=== PATIENT | female | born 1940 | race Caucasian/White ===

== ENCOUNTER 2016-08-29 13:44 | Outpatient (CLI) | payer MEDICARE, OTHER ==
[2012-08-19 03:56] VITALS: BP 88/47
== END 2016-08-29 13:45 ==
LOC: LAB 13:44
PROVIDERS: ATTEND Internal Medicine Cardiovascular Disease
DX: Z51.81 Encounter for therapeutic drug level monitoring (principal); Z79.01 Long term (current) use of anticoagulants; I48.91 Unspecified atrial fibrillation
CPT/HCPCS: 36415; 85610

== ENCOUNTER 2016-11-06 11:52 | Outpatient (CLI) | payer MEDICARE, OTHER ==
[2012-08-19 03:56] VITALS: BP 88/47
== END 2016-11-06 11:53 ==
LOC: LAB 11:52
PROVIDERS: ATTEND Internal Medicine Cardiovascular Disease
DX: Z51.81 Encounter for therapeutic drug level monitoring (principal); Z79.01 Long term (current) use of anticoagulants; I48.91 Unspecified atrial fibrillation
CPT/HCPCS: 36415; 85610

== ENCOUNTER 2016-11-20 15:17 | Outpatient (CLI) | payer MEDICARE, OTHER ==
[2012-08-19 03:56] VITALS: BP 88/47
== END 2016-11-20 15:20 ==
LOC: LAB 15:17
PROVIDERS: ATTEND Internal Medicine Cardiovascular Disease
DX: Z51.81 Encounter for therapeutic drug level monitoring (principal); Z79.01 Long term (current) use of anticoagulants; I48.91 Unspecified atrial fibrillation
CPT/HCPCS: 36415; 85610

== ENCOUNTER 2016-12-31 12:09 | Outpatient (CLI) | payer MEDICARE, OTHER ==
[2012-08-19 03:56] VITALS: BP 88/47
== END 2016-12-31 12:10 ==
LOC: LAB 12:09
PROVIDERS: ATTEND Internal Medicine Cardiovascular Disease
DX: I48.91 Unspecified atrial fibrillation (principal); Z79.01 Long term (current) use of anticoagulants
CPT/HCPCS: 36415; 85610

== ENCOUNTER 2017-01-28 13:45 | Outpatient (CLI) | payer MEDICARE, OTHER ==
[2012-08-19 03:56] VITALS: BP 88/47
== END 2017-01-28 13:46 ==
LOC: LAB 13:45
PROVIDERS: ATTEND Internal Medicine Cardiovascular Disease
DX: Z79.01 Long term (current) use of anticoagulants (principal)
CPT/HCPCS: 36415; 85610

== ENCOUNTER 2017-02-04 14:26 | Outpatient (CLI) | payer MEDICARE, OTHER ==
[2012-08-19 03:56] VITALS: BP 88/47
== END 2017-02-04 14:27 ==
LOC: LAB 14:26
PROVIDERS: ATTEND Internal Medicine Cardiovascular Disease
DX: R30.0 Dysuria (principal)
CPT/HCPCS: 36415; 85610; 87086

== ENCOUNTER 2017-02-12 08:20 | Outpatient (CLI) | payer MEDICARE, OTHER ==
[2012-08-19 03:56] VITALS: BP 88/47
== END 2017-02-12 08:21 ==
LOC: LAB 08:20
PROVIDERS: ATTEND Internal Medicine Cardiovascular Disease
DX: Z79.01 Long term (current) use of anticoagulants (principal)
CPT/HCPCS: 36415; 85610

== ENCOUNTER 2017-02-23 13:29 | Outpatient (CLI) | payer MEDICARE, OTHER ==
[2012-08-19 03:56] VITALS: BP 88/47
== END 2017-02-23 13:30 ==
LOC: LAB 13:29
PROVIDERS: ATTEND Internal Medicine Cardiovascular Disease
DX: Z79.01 Long term (current) use of anticoagulants (principal)
CPT/HCPCS: 36415; 85610

== ENCOUNTER 2017-03-05 11:54 | Outpatient (CLI) | payer MEDICARE, OTHER ==
[2012-08-19 03:56] VITALS: BP 88/47
== END 2017-03-05 11:55 ==
LOC: LAB 11:54
PROVIDERS: ATTEND Internal Medicine Cardiovascular Disease
DX: Z79.01 Long term (current) use of anticoagulants (principal)
CPT/HCPCS: 36415; 85610

== ENCOUNTER → 2017-03-12 | Outpatient (CLI) | payer MEDICARE, OTHER ==
[2012-08-19 03:56] VITALS: BP 88/47
== END ==
LOC: LAB 13:41
PROVIDERS: ATTEND Internal Medicine Cardiovascular Disease
DX: Z79.01 Long term (current) use of anticoagulants (principal)
CPT/HCPCS: 36415; 85610

== ENCOUNTER 2017-03-23 14:23 | Outpatient (CLI) | payer MEDICARE, OTHER ==
[2012-08-19 03:56] VITALS: BP 88/47
== END 2017-03-23 14:24 ==
LOC: LAB 14:23
PROVIDERS: ATTEND Internal Medicine Cardiovascular Disease
DX: Z79.01 Long term (current) use of anticoagulants (principal)
CPT/HCPCS: 36415; 85610

== ENCOUNTER 2017-03-31 11:48 | Outpatient (CLI) | payer MEDICARE, OTHER ==
[2012-08-19 03:56] VITALS: BP 88/47
== END 2017-03-31 11:50 ==
LOC: LAB 11:48
PROVIDERS: ATTEND Internal Medicine Cardiovascular Disease
DX: Z79.01 Long term (current) use of anticoagulants (principal)
CPT/HCPCS: 36415; 85610

== ENCOUNTER 2017-04-13 12:08 | Outpatient (CLI) | payer MEDICARE, OTHER ==
[2012-08-19 03:56] VITALS: BP 88/47
== END 2017-04-13 12:10 ==
LOC: LAB 12:08
PROVIDERS: ATTEND Internal Medicine Cardiovascular Disease
DX: Z79.01 Long term (current) use of anticoagulants (principal)
CPT/HCPCS: 36415; 85610

== ENCOUNTER 2017-04-20 12:09 | Outpatient (CLI) | payer MEDICARE, OTHER ==
[2012-08-19 03:56] VITALS: BP 88/47
== END 2017-04-20 12:10 ==
LOC: LAB 12:09
PROVIDERS: ATTEND Internal Medicine Cardiovascular Disease
DX: Z79.01 Long term (current) use of anticoagulants (principal)
CPT/HCPCS: 36415; 85610

== ENCOUNTER 2017-05-11 13:59 | Outpatient (CLI) | payer MEDICARE, OTHER ==
[2012-08-19 03:56] VITALS: BP 88/47
== END 2017-05-11 14:00 ==
LOC: LAB 13:59
PROVIDERS: ATTEND Internal Medicine Cardiovascular Disease
DX: Z79.01 Long term (current) use of anticoagulants (principal)
CPT/HCPCS: 36415; 85610

== ENCOUNTER 2017-06-22 15:42 | Outpatient (CLI) | payer MEDICARE, OTHER ==
[2012-08-19 03:56] VITALS: BP 88/47
== END 2017-06-22 15:43 ==
LOC: LAB 15:42
PROVIDERS: ATTEND Internal Medicine Cardiovascular Disease
DX: Z51.81 Encounter for therapeutic drug level monitoring (principal)
CPT/HCPCS: 36415; 85610

== ENCOUNTER 2017-07-22 11:16 | Outpatient (CLI) | payer MEDICARE, OTHER ==
[2012-08-19 03:56] VITALS: BP 88/47
== END 2017-07-22 11:30 ==
LOC: LAB 11:16
PROVIDERS: ATTEND Internal Medicine Cardiovascular Disease
DX: I48.91 Unspecified atrial fibrillation (principal); Z51.81 Encounter for therapeutic drug level monitoring
CPT/HCPCS: 36415; 85610

== ENCOUNTER 2017-08-27 16:04 | Outpatient (CLI) | payer MEDICARE, OTHER ==
[2012-08-19 03:56] VITALS: BP 88/47
== END 2017-08-27 16:05 ==
LOC: LAB 16:04
PROVIDERS: ATTEND Internal Medicine Cardiovascular Disease
DX: I48.91 Unspecified atrial fibrillation (principal); Z79.01 Long term (current) use of anticoagulants
CPT/HCPCS: 36415; 85610

== ENCOUNTER 2017-09-10 15:31 | Outpatient (CLI) | payer MEDICARE, OTHER ==
[2012-08-19 03:56] VITALS: BP 88/47
== END 2017-09-10 15:32 ==
LOC: LAB 15:31
PROVIDERS: ATTEND Internal Medicine Cardiovascular Disease
DX: I48.91 Unspecified atrial fibrillation (principal); Z51.81 Encounter for therapeutic drug level monitoring
CPT/HCPCS: 36415; 85610

== ENCOUNTER 2017-09-21 15:31 | Outpatient (CLI) | payer MEDICARE, OTHER ==
[2012-08-19 03:56] VITALS: BP 88/47
== END 2017-09-21 15:33 ==
LOC: LAB 15:31
PROVIDERS: ATTEND Internal Medicine Cardiovascular Disease
DX: I48.91 Unspecified atrial fibrillation (principal); Z79.899 Other long term (current) drug therapy
CPT/HCPCS: 36415; 85610

== ENCOUNTER 2017-10-29 13:57 | Outpatient (CLI) | payer MEDICARE, OTHER ==
[2012-08-19 03:56] VITALS: BP 88/47
== END 2017-10-29 14:05 ==
LOC: LAB 13:57
PROVIDERS: ATTEND Internal Medicine Cardiovascular Disease
DX: Z79.899 Other long term (current) drug therapy (principal); I48.91 Unspecified atrial fibrillation
CPT/HCPCS: 36415; 85610

== ENCOUNTER 2017-11-16 15:42 | Outpatient (CLI) | payer MEDICARE, OTHER ==
[2012-08-19 03:56] VITALS: BP 88/47
== END 2017-11-16 15:44 ==
LOC: LAB 15:42
PROVIDERS: ATTEND Internal Medicine Cardiovascular Disease
DX: I48.91 Unspecified atrial fibrillation (principal); Z79.899 Other long term (current) drug therapy
CPT/HCPCS: 36415; 85610

== ENCOUNTER 2017-12-08 15:18 | Outpatient (CLI) | payer MEDICARE, OTHER ==
[2012-08-19 03:56] VITALS: BP 88/47
== END 2017-12-08 15:20 ==
LOC: LAB 15:18
PROVIDERS: ATTEND Internal Medicine Cardiovascular Disease
DX: I48.91 Unspecified atrial fibrillation (principal); Z79.899 Other long term (current) drug therapy
CPT/HCPCS: 36415; 85610

== ENCOUNTER 2017-12-28 16:40 | Outpatient (CLI) | payer MEDICARE, OTHER ==
[2012-08-19 03:56] VITALS: BP 88/47
== END 2017-12-28 16:42 ==
LOC: LAB 16:40
PROVIDERS: ATTEND Internal Medicine Cardiovascular Disease
DX: Z79.01 Long term (current) use of anticoagulants (principal); I48.91 Unspecified atrial fibrillation
CPT/HCPCS: 36415; 85610

== ENCOUNTER 2018-01-18 14:32 | Outpatient (CLI) | payer MEDICARE, OTHER ==
[2012-08-19 03:56] VITALS: BP 88/47
[2018-01-18 15:09] LABS: eGFR (African) > 60; eGFR (Non-African) > 60
== END 2018-01-18 14:33 ==
LOC: LAB 14:32
PROVIDERS: ATTEND Family Medicine
DX: Z79.01 Long term (current) use of anticoagulants (principal); I48.91 Unspecified atrial fibrillation; I10 Essential (primary) hypertension; E03.9 Hypothyroidism, unspecified
CPT/HCPCS: 36415; 80048; 84443; 85610

== ENCOUNTER 2018-02-26 14:33 | Outpatient (CLI) | payer MEDICARE, OTHER ==
[2012-08-19 03:56] VITALS: BP 88/47
== END 2018-02-26 14:34 ==
LOC: LAB 14:33
PROVIDERS: ATTEND Internal Medicine Cardiovascular Disease
DX: I48.91 Unspecified atrial fibrillation (principal); Z79.01 Long term (current) use of anticoagulants
CPT/HCPCS: 36415; 85610

== ENCOUNTER 2018-03-15 13:21 | Outpatient (CLI) | payer MEDICARE, OTHER ==
[2012-08-19 03:56] VITALS: BP 88/47
== END 2018-03-15 13:22 ==
LOC: LAB 13:21
PROVIDERS: ATTEND Internal Medicine Cardiovascular Disease
DX: I48.91 Unspecified atrial fibrillation (principal); Z79.01 Long term (current) use of anticoagulants
CPT/HCPCS: 36415; 85610

== ENCOUNTER 2018-04-20 13:48 | Outpatient (CLI) | payer MEDICARE, OTHER ==
[2012-08-19 03:56] VITALS: BP 88/47
== END 2018-04-20 13:50 ==
LOC: LAB 13:48
PROVIDERS: ATTEND Internal Medicine Cardiovascular Disease
DX: R31.0 Gross hematuria (principal); I48.91 Unspecified atrial fibrillation; Z79.01 Long term (current) use of anticoagulants
CPT/HCPCS: 36415; 85610; 87086; 87186

== ENCOUNTER 2018-05-05 12:55 | Outpatient (CLI) | payer MEDICARE, OTHER ==
[2012-08-19 03:56] VITALS: BP 88/47
== END 2018-05-05 12:56 ==
LOC: LAB 12:55
PROVIDERS: ATTEND Internal Medicine Cardiovascular Disease
DX: I48.91 Unspecified atrial fibrillation (principal); Z79.01 Long term (current) use of anticoagulants
CPT/HCPCS: 36415; 85610

== ENCOUNTER 2018-05-21 15:54 | Outpatient (CLI) | payer MEDICARE, OTHER ==
[2012-08-19 03:56] VITALS: BP 88/47
== END 2018-05-21 16:00 ==
LOC: LAB 15:54
PROVIDERS: ATTEND Internal Medicine Cardiovascular Disease
DX: I48.91 Unspecified atrial fibrillation (principal); Z79.01 Long term (current) use of anticoagulants
CPT/HCPCS: 36415; 85610

== ENCOUNTER 2018-06-22 14:38 | Outpatient (CLI) | payer MEDICARE, OTHER ==
[2012-08-19 03:56] VITALS: BP 88/47
== END 2018-06-22 14:40 ==
LOC: LAB 14:38
PROVIDERS: ATTEND Internal Medicine Cardiovascular Disease
DX: I48.91 Unspecified atrial fibrillation (principal); Z79.01 Long term (current) use of anticoagulants
CPT/HCPCS: 36415; 85610

== ENCOUNTER 2018-07-28 13:52 | Outpatient (CLI) | payer MEDICARE, OTHER ==
[2012-08-19 03:56] VITALS: BP 88/47
== END 2018-07-28 13:53 ==
LOC: LAB 13:52
PROVIDERS: ATTEND Internal Medicine Cardiovascular Disease
DX: I48.91 Unspecified atrial fibrillation (principal); Z79.01 Long term (current) use of anticoagulants
CPT/HCPCS: 36415; 85610

== ENCOUNTER 2018-08-30 15:46 | Outpatient (CLI) | payer MEDICARE, OTHER ==
[2012-08-19 03:56] VITALS: BP 88/47
== END 2018-08-30 15:48 ==
LOC: LAB 15:46
PROVIDERS: ATTEND Internal Medicine Cardiovascular Disease
DX: I48.91 Unspecified atrial fibrillation (principal); Z79.01 Long term (current) use of anticoagulants
CPT/HCPCS: 36415; 85610

== ENCOUNTER 2018-10-08 15:21 | Outpatient (CLI) | payer MEDICARE, OTHER ==
[2012-08-19 03:56] VITALS: BP 88/47
== END 2018-10-08 15:23 ==
LOC: LAB 15:21
PROVIDERS: ATTEND Internal Medicine Cardiovascular Disease
DX: I48.91 Unspecified atrial fibrillation (principal); Z79.01 Long term (current) use of anticoagulants
CPT/HCPCS: 36415; 85610

== ENCOUNTER 2018-11-08 17:05 | Outpatient (CLI) | payer MEDICARE, OTHER ==
[2012-08-19 03:56] VITALS: BP 88/47
== END 2018-11-08 17:07 ==
LOC: LAB 17:05
PROVIDERS: ATTEND Internal Medicine Cardiovascular Disease
DX: I48.91 Unspecified atrial fibrillation (principal); Z79.01 Long term (current) use of anticoagulants
CPT/HCPCS: 36415; 85610

== ENCOUNTER 2018-12-30 12:19 | Outpatient (CLI) | payer MEDICARE, OTHER ==
[2012-08-19 03:56] VITALS: BP 88/47
== END 2018-12-30 12:24 | disposition home or self-care (01) ==
LOC: LAB 12:19
PROVIDERS: ATTEND Internal Medicine Cardiovascular Disease
DX: Z79.01 Long term (current) use of anticoagulants (principal); I48.91 Unspecified atrial fibrillation; Z51.81 Encounter for therapeutic drug level monitoring
CPT/HCPCS: 36415; 85610

== ENCOUNTER 2019-02-08 12:44 | Outpatient (CLI) | payer MEDICARE, OTHER ==
[2012-08-19 03:56] VITALS: BP 88/47
== END 2019-02-08 12:46 ==
LOC: LAB 12:44
PROVIDERS: ATTEND Internal Medicine Cardiovascular Disease
DX: I48.91 Unspecified atrial fibrillation (principal); Z79.01 Long term (current) use of anticoagulants
CPT/HCPCS: 36415; 85610

== ENCOUNTER 2019-03-18 13:19 | Outpatient (CLI) | payer MEDICARE, OTHER ==
[2012-08-19 03:56] VITALS: BP 88/47
== END 2019-03-18 13:21 ==
LOC: LAB 13:19
PROVIDERS: ATTEND Internal Medicine Cardiovascular Disease
DX: I48.91 Unspecified atrial fibrillation (principal); Z79.01 Long term (current) use of anticoagulants
CPT/HCPCS: 36415; 85610

== ENCOUNTER 2019-04-06 11:26 | Outpatient (CLI) | payer MEDICARE, OTHER ==
[2012-08-19 03:56] VITALS: BP 88/47
== END 2019-04-06 11:28 ==
LOC: LAB 11:26
PROVIDERS: ATTEND Internal Medicine Cardiovascular Disease
DX: I48.91 Unspecified atrial fibrillation (principal); Z79.01 Long term (current) use of anticoagulants
CPT/HCPCS: 36415; 85610

== ENCOUNTER 2019-05-04 11:10 | Outpatient (CLI) | payer MEDICARE, OTHER ==
[2012-08-19 03:56] VITALS: BP 88/47
== END 2019-05-04 11:15 ==
LOC: LAB 11:10
PROVIDERS: ATTEND Internal Medicine Clinical Cardiac Electrophysiology
DX: Z51.81 Encounter for therapeutic drug level monitoring (principal); Z79.01 Long term (current) use of anticoagulants; I48.91 Unspecified atrial fibrillation
CPT/HCPCS: 36415; 85610

== ENCOUNTER 2019-05-19 09:56 | Outpatient (CLI) | payer MEDICARE, OTHER ==
[2012-08-19 03:56] VITALS: BP 88/47
[2019-05-19 10:21] LABS: BASOPHILS % 0.5 % (0.0-1.5)
[2019-05-19 11:38] LABS: eGFR (Non-African) > 60
== END 2019-05-19 10:05 ==
LOC: LAB 09:56
PROVIDERS: ATTEND Family Medicine
DX: I10 Essential (primary) hypertension (principal); E03.9 Hypothyroidism, unspecified; I48.91 Unspecified atrial fibrillation; R21 Rash and other nonspecific skin eruption; Z79.01 Long term (current) use of anticoagulants
CPT/HCPCS: 36415; 80053; 84443; 85025; 85610

== ENCOUNTER 2019-06-09 15:50 | Outpatient (CLI) | payer MEDICARE, OTHER ==
[2012-08-19 03:56] VITALS: BP 88/47
== END 2019-06-09 15:55 ==
LOC: LAB 15:50
PROVIDERS: ATTEND Internal Medicine Clinical Cardiac Electrophysiology
DX: I48.91 Unspecified atrial fibrillation (principal); Z79.01 Long term (current) use of anticoagulants
CPT/HCPCS: 36415; 85610

== ENCOUNTER 2019-07-18 14:47 | Outpatient (CLI) | payer MEDICARE, OTHER ==
[2012-08-19 03:56] VITALS: BP 88/47
== END 2019-07-18 14:52 ==
LOC: LAB 14:47
PROVIDERS: ATTEND Internal Medicine Clinical Cardiac Electrophysiology
DX: I48.91 Unspecified atrial fibrillation (principal); Z79.01 Long term (current) use of anticoagulants
CPT/HCPCS: 36415; 85610